=== PATIENT | female | born 1945 | race Caucasian/White ===

== ENCOUNTER 2019-01-05 20:52 | Emergency (ER) | payer MEDICARE ==
[~2019-01-05 20:52] MED LIST: ATOR20TA PO; LEVO125T95 PO
[2019-01-05] MEDS ORDERED: SODIUM CHLORIDE 0.9% 500ML 500 ML IV ONE (21:42)
[2019-01-05 21:46] LABS: BASOPHILS % (AUTO) 0.8 % (0.0-5.0); EOSINOPHILS % (AUTO) 1.3 % (0.0-8.0); HEMATOCRIT 43.1 % (36-48); LYMPHOCYTES % (AUTO) 15.8 % (21.0-51.0); MEAN CORPUSCULAR HGB CONC 33.8 g/dL (32.0-36.0); MEAN CORPUSCULAR VOLUME 88.6 fL (79-99); MONOCYTES % (AUTO) 11.2 % (3.0-13.0); NEUTROPHILS % (AUTO) 70.9 % (40.0-77.0); NUCLEATED RED BLOOD CELLS 0.1 % (0.0-0.19); PLATELET COUNT (AUTO) 194 K/uL (130-400); RED BLOOD CELL COUNT(AUTO) 4.86 MIL/uL (4.00-5.50); RED CELL DISTRIBUTION WIDTH 13.8 % (11.0-15.5); WHITE BLOOD COUNT (AUTO) 5.9 K/uL (4.8-10.8)
[2019-01-05] MEDS ORDERED: ONDANSETRON HCL 4 MG/2 ML VIAL ONE (21:50)
[2019-01-05 21:58] LABS: POTASSIUM 3.9 mmol/L (3.5-5.1)
[2019-01-05 22:02] LABS: ALBUMIN 3.3 g/dL (3.5-5.0); BILIRUBIN,DIRECT 0.2 mg/dL (0.0-0.3); BILIRUBIN,TOTAL 0.8 mg/dL (0.2-1.0); TOTAL PROTEIN, SERUM 6.8 g/dL (6.0-8.3)
[2019-01-05 22:07] LABS: B-TYPE NATRIURETIC PEPTIDE 10 pg/mL (0-100)
[2019-01-05] MEDS ORDERED: HYOSCYAMINE SULFATE 0.125 MG TAB.SUBL SL ONE (22:30)
[2019-01-05 22:38] LABS: APPEARANCE,URINE SL CLOUDY (CLEAR); BILIRUBIN,URINE MODERATE (NEGATIVE); COLOR,URINE YELLOW (YELLOW); GLUCOSE, URINE (UA) NEGATIVE (NEGATIVE); KETONES,URINE 15 mg/dL (NEGATIVE); LEUKOCYTE ESTERASE ,URINE TRACE (NEGATIVE); NITRATE,URINE NEGATIVE (NEGATIVE); OCCULT BLOOD,URINE NEGATIVE (NEGATIVE); PH,URINE 5.5 (5.0-8.0); PROTEIN,URINE 30 mg/dL (NEGATIVE)
[2019-01-05 22:49] LABS: BACTERIA,URINE None Seen /HPF (None Seen); RBC,URINE None Seen /HPF (0-1); SQUAMOUS EPITHELIAL CELL,UR Rare /HPF (0-2); WBC,URINE 0-1 /HPF (0-1)
== END 2019-01-05 23:54 | disposition home or self-care (01) ==
LOC: EDH 20:52
DX: K52.9 Noninfective gastroenteritis and colitis, unspecified (principal); R93.2 Abnormal findings on diagnostic imaging of liver and biliary tract; R94.5 Abnormal results of liver function studies; E03.9 Hypothyroidism, unspecified; E78.5 Hyperlipidemia, unspecified; Z79.899 Other long term (current) drug therapy; Z90.49 Acquired absence of other specified parts of digestive tract; Z90.710 Acquired absence of both cervix and uterus
CPT/HCPCS: 36415; 76705; 80048; 80076; 81001; 82550; 83690; 83880; 84484; 85025; 93005; 96374; 99285; J2405; J7040

== ENCOUNTER 2021-04-20 10:00 | Observation (INO) | payer MEDICARE ==
[~2021-04-20] VITALS: Ht 157.5 cm; Wt 79.8 kg
[2021-04-20 09:35] LABS: APPEARANCE,URINE Clear (CLEAR); BILIRUBIN,URINE Negative (NEGATIVE); COLOR,URINE Yellow (YELLOW); GLUCOSE, URINE (UA) Negative (NEGATIVE); KETONES,URINE Trace mg/dL (NEGATIVE); LEUKOCYTE ESTERASE ,URINE Trace (NEGATIVE); NITRATE,URINE Negative (NEGATIVE); OCCULT BLOOD,URINE Negative (NEGATIVE); PROTEIN,URINE Negative (NEGATIVE)
[~2021-04-20 10:00] MED LIST changes: -ATOR20TA PO
[2021-04-20 10:05] LABS: BACTERIA,URINE Rare /HPF (None Seen); RBC,URINE 0-1 /HPF (0-1); SQUAMOUS EPITHELIAL CELL,UR Rare /HPF (0-2); WBC,URINE 0-1 /HPF (0-1)
[2021-04-21] MEDS ORDERED: ATOR40TA71 PO (11:59)
[2021-04-22] VITALS (22 sets, daily range): BP systolic 96–181; BP diastolic 50–81
[2021-04-22] MEDS ORDERED: CEFAZOLIN SODIUM 1 GM VIAL ONE ×2 (08:52→09:03)
[2021-04-22] MEDS ORDERED: LACTATED RINGERS 1000ML 1,000 ML IV ONE (08:53)
[2021-04-22] MEDS ORDERED: PROPOFOL 10 MG/ML 20ML VIAL IV ONE (09:51)
[2021-04-22] MEDS ORDERED: ROCURONIUM 10MG/1ML SYR 10 MG/ML ML ONE (10:01)
[2021-04-22] MEDS ORDERED: TRANEXAMIC ACID 1000MG/10ML ONE ×2 (10:02→13:58)
[2021-04-22] MEDS ORDERED: 0.9%NACL 10ML VIAL ONE (10:03)
[2021-04-22] MEDS ORDERED: FENTANYL CITRATE PF 50 MCG/1 ML 2ML VIAL ONE ×3 (10:46→11:10)
[2021-04-22] MEDS ORDERED: MIDAZOLAM HCL 1 MG/ML 2ML VIAL ONE (11:09)
[2021-04-22] MEDS ORDERED: ROPIVACAINE 0.5% 5MG/ML 30ML IJ ONE (12:09)
[2021-04-22] MEDS ORDERED: NEOSTIGMINE 5MG/5ML SYR IV ONE (12:45)
[2021-04-22] MEDS ORDERED: GLYCOPYRROLATE 1 MG/5 ML SYRINGE ONE (12:45)
[2021-04-22] MEDS ORDERED: ONDANSETRON 4MG INJ ONE (12:45)
[2021-04-22] MEDS ORDERED: OXYCODONE HCL 5 MG TAB PO PRN ×2 (13:30)
[2021-04-22] MEDS ORDERED: POTASSIUM CHLORIDE 10% ELIXIR 20 MEQ/15 ML UDCUP PO PRN (13:30)
[2021-04-22] MEDS ORDERED: KETOROLAC 15MG/ML VIAL (15MG/ML) IV PRN (13:30)
[2021-04-22] MEDS ORDERED: ONDANSETRON 4MG INJ IVP PRN (13:30)
[2021-04-22] MEDS ORDERED: CALCIUM CARB 500MG PO PRN (13:30)
[2021-04-22] MEDS ORDERED: DiphenhydrAMINE HCL 50 MG/ML VIAL IVP PRN (13:30)
[2021-04-22] MEDS ORDERED: POTASSIUM CHLORIDE 20MEQ/100ML 100 ML IV PRN (13:30)
[2021-04-22] MEDS ORDERED: ACETAMINOPHEN 500 MG TABLET PO SCH (13:30)
[2021-04-22] MEDS: 0.9%NACL 1000ML 1,000 ML IV SCH ×2 (13:30→23:30)
[2021-04-22] MEDS ORDERED: FERROUS FUMARATE 324 MG TABLET PO PRN (13:30)
[2021-04-22] MEDS ORDERED: LIDOCAINE HCL-MPF 1% 2ML VIAL IV PRN (13:30)
[2021-04-22] MEDS ORDERED: TRAMADOL HCL 50 MG TABLET PO PRN (13:30)
[2021-04-22] MEDS ORDERED: KCL 20 MEQ ERTAB PO PRN (13:30)
[2021-04-22] MEDS ORDERED: MEPERIDINE-PF 25 MG/ML SYG ONE ×2 (14:11→14:22)
[2021-04-22] MEDS: CEFAZOLIN SODIUM 1 GM VIAL IVP SCH (19:18)
[2021-04-22] MEDS ORDERED: ACETAMINOPHEN 500 MG TABLET ONE (20:34)
[2021-04-22] MEDS: CELECOXIB 200 MG CAP PO SCH (21:03)
[2021-04-22] MEDS: PREGABALIN 25 MG CAP PO SCH (21:03)
[2021-04-22] MEDS: ACETAMINOPHEN 500 MG TABLET PO SCH (21:04)
[2021-04-22] MEDS: ATORVASTATIN 40 MG TABLET PO SCH (21:04)
[2021-04-22] MEDS: FAMOTIDINE 20MG TAB PO SCH (21:05)
[2021-04-23] MEDS: CEFAZOLIN SODIUM 1 GM VIAL IVP SCH (03:29)
[2021-04-23 04:17] VITALS: BP 121/72
[2021-04-23] MEDS: LEVOTHYROXINE 125 MCG TABLET PO SCH (06:30)
[2021-04-23] MEDS: ACETAMINOPHEN 500 MG TABLET PO SCH ×2 (06:30→13:38)
[2021-04-23 07:08] LABS: HEMATOCRIT 33.8 % (36-48); MEAN CORPUSCULAR HEMOGLOBIN 29.7 pg (27.0-33.0); MEAN CORPUSCULAR VOLUME 92.9 fL (79-99); RED BLOOD CELL COUNT(AUTO) 3.64 MIL/uL (4.00-5.50); RED CELL DISTRIBUTION WIDTH 14.4 % (11.0-15.5); WHITE BLOOD COUNT (AUTO) 12.2 K/uL (4.8-10.8)
[2021-04-23 07:15] LABS: CREATININE 1.4 mg/dL (0.5-1.5); POTASSIUM 4.4 mmol/L (3.5-5.1)
[2021-04-23] MEDS: APIXABAN 2.5 MG TABLET PO SCH ×2 (08:39→19:27)
[2021-04-23] MEDS: CELECOXIB 200 MG CAP PO SCH ×2 (08:40→19:27)
[2021-04-23] MEDS: PREGABALIN 25 MG CAP PO SCH (08:40)
[2021-04-23] MEDS: POLYETHYLENE GLYCOL 3350 17 GM POWD.PACK PO SCH (08:40)
[2021-04-23] MEDS: FAMOTIDINE 20MG TAB PO SCH ×2 (08:40→19:24)
[2021-04-23] MEDS: 0.9%NACL 1000ML 1,000 ML IV SCH (09:30)
[2021-04-23 11:07] VITALS: BP 112/76
[2021-04-23 16:32] VITALS: BP 116/76
[2021-04-23 19:00] VITALS: BP 117/60
[2021-04-23] MEDS: ATORVASTATIN 40 MG TABLET PO SCH (19:27)
[2021-04-24] VITALS: BP 110/54
[2021-04-24 03:41] LABS: HEMATOCRIT 27.1 % (36-48); MEAN CORPUSCULAR HEMOGLOBIN 29.3 pg (27.0-33.0); MEAN CORPUSCULAR HGB CONC 32.1 g/dL (32.0-36.0); MEAN CORPUSCULAR VOLUME 91.2 fL (79-99); RED BLOOD CELL COUNT(AUTO) 2.97 MIL/uL (4.00-5.50); RED CELL DISTRIBUTION WIDTH 14.3 % (11.0-15.5)
[2021-04-24 04:00] VITALS: BP 109/45
[2021-04-24 04:03] LABS: CREATININE 1.3 mg/dL (0.5-1.5); POTASSIUM 4.1 mmol/L (3.5-5.1)
[2021-04-24] MEDS: LEVOTHYROXINE 125 MCG TABLET PO SCH (05:39)
[2021-04-24] MEDS: ACETAMINOPHEN 500 MG TABLET PO SCH ×2 (05:39→06:00)
[2021-04-24 08:00] VITALS: BP 106/60
[2021-04-24] MEDS: FAMOTIDINE 20MG TAB PO SCH (08:55)
[2021-04-24] MEDS: POLYETHYLENE GLYCOL 3350 17 GM POWD.PACK PO SCH (08:55)
[2021-04-24] MEDS: APIXABAN 2.5 MG TABLET PO SCH (08:55)
[2021-04-24] MEDS: CELECOXIB 200 MG CAP PO SCH (08:55)
[2021-04-24] MEDS ORDERED: APIX2.5T PO (09:49)
[2021-04-24] MEDS ORDERED: FERR324T10 PO (09:49)
[2021-04-24] MEDS ORDERED: HYDR-4060 PO (09:49)
[2021-04-24 12:01] VITALS: BP 132/62
[2021-04-25] MEDS ORDERED: BISACODYL 10 MG SUPP.RECT RC PRN (13:30)
== END 2021-04-24 14:45 ==
LOC: EDSTATUS 10:00 → OBSVTOIN 04-22 06:53 → DAHIP 04-22 06:53 → INTOOBSV 04-22 06:53 → 4AH 04-22 14:49
PROVIDERS: ADMIT Orthopaedic Surgery; ATTEND Orthopaedic Surgery
DX: M16.12 Unilateral primary osteoarthritis, left hip (principal); Z20.822 Contact with and (suspected) exposure to COVID-19; D62 Acute posthemorrhagic anemia; E03.9 Hypothyroidism, unspecified; E78.00 Pure hypercholesterolemia, unspecified; Z90.710 Acquired absence of both cervix and uterus; Z79.899 Other long term (current) drug therapy; Z98.890 Other specified postprocedural states
CPT/HCPCS: 27130; 36415 ×2; 73503; 80048 ×2; 81001; 85027 ×2; 87088; 87635; 87641; 96361 ×2; 96374; 96376; 97039 ×3; 97116 ×3; 97161; 97530; A4649 ×6; A4930 ×2; A9272; C1776; G0378 ×25; J0690 ×4; J2175 ×2; J2250; J2405; J2704; J2710; J2795; J3010 ×3; J3490 ×3; J7120